=== PATIENT | male | born 1985 | race Caucasian/White ===

== ENCOUNTER → 2025-02-23 | Outpatient (CLI) | payer BC ==
--- NOTE | 2025-02-23 21:08 | US ---
EXAMINATION TYPE: US kidneys/renal and bladder DATE OF EXAM: 02/23/2025 COMPARISON: NONE CLINICAL INDICATION: Male, 39 years old with history of N18.9 CHRONIC KIDNEY DISEASE, UNSPECIFIED; CK D TECHNIQUE: Grayscale imaging of the bilateral kidneys and urinary bladder: FINDINGS: EXAM MEASUREMENTS: Right Kidney: 10.1 x 5.2 x 5.6 cm Left Kidney: 11.3 x 5.9 x 5.0 cm Right Kidney: Multiple cystic areas seen largest mid pole 2.4 x 1.6 x 2.1 cm. Left Kidney: Multiple cystic areas seen largest inferior pole2.4 x 1.7 x 2.6 cm. Bladder: anechoic Bilateral Jets seen: yes There is no evidence for hydronephrosis at this point in time. No nephrolithiasis is seen. No pallavi s are identified. The urinary bladder is anechoic. IMPRESSION: Bilateral renal cysts [facility] Lenora Grace, , 02/23/2025 9:06 PM
== END | disposition home or self-care (01) ==
LOC: RADUSWWP 16:01
PROVIDERS: ATTEND Family Medicine
DX: N18.9 Chronic kidney disease, unspecified (principal); N28.1 Cyst of kidney, acquired
CPT/HCPCS: 76770